=== PATIENT | female | born 1985 | race Caucasian/White ===

== ENCOUNTER → 2023-08-24 16:10 | Outpatient (CLI) | payer OTHER, SELFPAY ==
[2023-08-24 16:59] LABS: Influenza A - CEPHEID Flu A NEGATIVE (NEGATIVE); Influenza B - CEPHEID Flu B NEGATIVE (NEGATIVE); Respiratory Syncytial Virus Negative (Negative)
[2023-08-24 17:26] LABS: COVID-19 CEPHEID 4-PLEX PCR Negative (Negative)
== END ==
PROVIDERS: Visit Provider Physician Assistant Surgical
DX: R05.9 Cough, unspecified (principal)
CPT/HCPCS: 0241U

== ENCOUNTER 2023-08-26 12:28 | Emergency (ER) | payer OTHER, SELFPAY ==
[2023-08-26 12:37] VITALS: BP 193/127; PULSE 89; RESP 18; TEMP 36.1; O2SAT 85; BMI 29.9
--- NOTE | 2023-08-26 13:35 | DI.RAD.S_ITS ---
PROCEDURE: XR CHEST 2V INDICATIONS: Cough 3 weeks TECHNIQUE: 2 views of the chest were acquired. COMPARISON: None. FINDINGS: Surgical changes and devices: None. Lungs and pleura: Lungs are clear. No pleural effusions or pneumothorax. Mediastinum: Mediastinal contours are normal. Heart size is normal. Bones and chest wall: No suspicious bony abnormalities. Soft tissues appear unremarkable. IMPRESSION: No acute pulmonary process. Dictated by: Ilana Montenegro M.D. on 08/26/2023 at 14:24 Approved by: Ilana Montenegro M.D. on 08/26/2023 at 14:24
[2023-08-26 14:48] VITALS: BP 178/114; PULSE 73; RESP 18; O2SAT 98
[2023-08-26 15:55] VITALS: BP 175/115; PULSE 89; RESP 16; O2SAT 97
--- NOTE | 2023-09-02 19:13 | ED.URI ---
HPI - URI/Sore Throat <Apolinar Howell PA-C - Last Filed: 09/02/23 19:18> General Chief Complaint: Upper Respiratory Symptoms Stated Complaint: prolonged cough getting worse Time Seen by Provider: 08/26/23 13:40 Source: patient Mode of arrival: Ambulatory History of Present Illness HPI Narrative: 38-year-old female presents to the ED with 3 weeks of persistent cough. Patient had a cold 3 weeks ago, following which her other symptoms have resolved but the cough is lingering. Patient was seen at a urgent care clinic 3 days ago and was prescribed Tessalon Perles and Mucinex. Patient was also prescribed ipratropium nasal spray. Patient has been using those without much relief. Patient's blood pressure is also elevated in the ED today at 193 over 127. Patient denies a history of hypertension. Patient denies chest pain, shortness of breath. Related Data Previous Rx's Medication Instructions Recorded benzonatate 200 mg capsule 200 mg PO BID PRN cough #30 caps 08/24/23 ipratropium bromide 21 mcg (0.03 2 spray intranasal BID PRN allergy 08/24/23 %) nasal spray symptoms #30 mL codeine 10 mg-guaifenesin 100 mg/5 10 ml PO Q4-6H PRN cough #400 mL 08/26/23 mL oral liquid Allergies Allergy/AdvReac Type Severity Reaction Status Date / Time No Known Drug Allergies Allergy Unverified 08/24/23 16:09 Review of Systems <Apolinar Howell PA-C - Last Filed: 09/02/23 19:18> Constitutional Constitutional: Denies chills, Denies fatigue, Denies fever(s), Denies frequent falls, Denies lethargy and Denies weakness Eyes Eyes: Denies change in vision, Denies eye discharge, Denies irritation and Denies loss of vision ENT Ears, Nose, Mouth, and Throat: Denies change in voice, Denies dizziness, Denies neck pain, Denies sore throat and Denies throat swelling Cardiovascular Cardiovascular: Denies chest pain, Denies irregular heart rhythm, Denies lightheadedness, Denies palpitations, Denies dyspnea, Denies dyspnea on exertion and Denies orthopnea Respiratory Respiratory: Reports cough, Denies dyspnea, Denies dyspnea on exertion and Denies wheezing Gastrointestinal Gastrointestinal: Denies abdominal pain, Denies change in bowel habits, Denies diarrhea, Denies nausea and Denies vomiting Musculoskeletal Musculoskeletal: Denies neck pain and Denies numbness Integumentary/Breasts Skin/Breast: Denies pruritus, Denies erythema, Denies rash and Denies wounds Neurologic Neurologic: Denies behavioral changes, Denies confusion, Denies dizziness, Denies frequent falls, Denies loss of vision, Denies numbness and Denies weakness Psychiatric Psychiatric: Denies anxiety, Denies behavioral changes, Denies confusion, Denies depression, Denies homicidal ideation and Denies suicidal ideation Endocrine Endocrine: Denies fatigue, Denies flushing and Denies palpitations Hematologic/Lymphatic Hematologic/Lymphatic: Denies easy bruising Allergic/Immunologic Allergic/Immunologic: Denies urticaria, Denies throat swelling and Denies wheezing Patient History <Apolinar Howell PA-C - Last Filed: 09/02/23 19:18> Social History Smoking Status: Never smoker Smoking Status: Never smoker alcohol intake frequency: holidays/special occasions only Substance Use Type: does not use Exam <Apolinar Howell PA-C - Last Filed: 09/02/23 19:18> Narrative Exam Narrative: Const General:?cooperative, healthy appearing and comfortable [facility] Head:?normal to inspection Ears:?hearing grossly normal bilaterally Nose:?external nose normal Face and sinus:?normal facial exam and sinuses nontender Mouth:?oral mucosae normal Throat:?posterior oropharynx normal Eyes General:?appearance normal, both eyes and all related structures Neck Neck:?normal visual inspection and no lymphadenopathy noted Resp Effort & Inspection:?normal respiratory effort Auscultation:?clear to auscultation bilaterally Cardio Rate:?regular rate Rhythm:?regular rhythm Neuro General:?patient alert, patient awake and patient oriented x3 Initial Vital Signs Initial Vital Signs: Vital Signs Temperature 97 F L 08/26/23 12:37 Pulse Rate 89 08/26/23 12:37 Respiratory Rate 18 08/26/23 12:37 Blood Pressure 193/127 H 08/26/23 12:37 Pulse Oximetry 85 L 08/26/23 12:37 Oxygen Delivery Method Room Air 08/26/23 12:37 <Nirmala Garcia DO - Last Filed: 09/06/23 23:52> Initial Vital Signs Initial Vital Signs: Vital Signs Temperature 97 F L 08/26/23 12:37 Pulse Rate 89 08/26/23 12:37 Respiratory Rate 18 08/26/23 12:37 Blood Pressure 193/127 H 08/26/23 12:37 Pulse Oximetry 85 L 08/26/23 12:37 Oxygen Delivery Method Room Air 08/26/23 12:37 MDM - URI/Sore Throat <Apolinar Howell PA-C - Last Filed: 09/02/23 19:18> MDM Narrative Medical decision making narrative: 38-year-old female presents to the ED with 3 weeks of persistent cough. Chest x-ray was obtained which was normal. Patient's symptoms are most consistent with acute bronchitis following a cold. Prescribed codeine cough syrup. Recommend that patient stop the ipratropium nasal spray since it can be contributing to the elevated blood pressure. Counseled patient on elevated blood pressure readings, recommend keeping a journal of daily blood pressure readings, following up with her PCP as soon as possible for further evaluation. ED return precautions were discussed with patient. Patient verbalized understanding. Medical records reviewed: Yes Discharge Plan Departure Patient Disposition: Home Clinical Impression: Bronchitis Instructions: DI for Acute Bronchitis Activity Restrictions/Additional Instructions: You were evaluated in the ED today for a cough. Your x-ray was normal. Your symptoms are most consistent with acute bronchitis following a cold. It is quite common to develop bronchitis after a cold which causes a nagging cough that can last for 3-4 weeks. Your x-ray does not show any pneumonia. The treatment for bronchitis is to control your symptoms, good hydration. You are being prescribed a codeine cough syrup for the cough. You may continue Mucinex and Delsym. Please stop the ipratropium since it could be contributing to your elevated blood pressure today. Your blood pressure was elevated, please ensure to follow-up with your PCP as soon as possible for further evaluation. Please also obtain a blood pressure cuff to take daily measurements at home and journal them to take to your PCP. Return to the ED if you have worsening symptoms, fever, chills, persistent vomiting. Prescriptions: New codeine-guaifenesin 10-100 mg/5 mL liquid 10 ml PO Q4-6H PRN (Reason: cough) Qty: 400 0RF No Action benzonatate 200 mg capsule 200 mg PO BID PRN (Reason: cough) Qty: 30 0RF ipratropium bromide 21 mcg (0.03 %) spray,non-aerosol 2 spray intranasal BID PRN (Reason: allergy symptoms) Qty: 30 0RF Rx Instructions: administer into each nostril Referrals: Miscellaneous,Doctor, MD [Primary Care Provider] - Stand Alone Forms: Patient Portal/API ED Sign-out <Nirmala Garcia DO - Last Filed: 09/06/23 23:52> Cosign ED Attending Coslaurieature Attestation: I was immediately available in the department for consultation.
== END 2023-08-26 16:18 | disposition home or self-care (01) ==
PROVIDERS: Emergency Provider Student in an Organized Health Care Education/Training Program
DX: J20.9 Acute bronchitis, unspecified (principal)
CPT/HCPCS: 71046; 99283

== ENCOUNTER → 2024-01-02 11:41 | Outpatient (CLI) | payer OTHER, SELFPAY ==
[2024-01-02 12:24] LABS: Hematocrit 36.8 % (36-46); Hemoglobin 12.7 g/dL (12.0-16.0); Mean Corpuscular HGB Conc 34.5 % (30-36); Mean Corpuscular Hemoglobin 30.5 PG (26-34); Mean Corpuscular Volume 88.4 fL (80-100); Platelet Count 300 X10^3/uL (150-400); Red Blood Cell Count 4.16 X10^6/uL (4.0-5.2); White Blood Cell Count 6.9 X10^3/uL (4.5-11.0)
[2024-01-02 12:56] LABS: Alanine Aminotransferase 21 IU/L (<35); Albumin 4.1 g/dL (3.5-5.0); Albumin Globulin Ratio 1.6 (1.0-2.8); Alkaline Phosphatase 70 U/L (38-126); Aspartate Aminotransferase 21 IU/L (14-36); BUN Creatinine Ratio 14.5 (6-22); Bilirubin Total 0.5 mg/dL (0.2-1.3); Blood Urea Nitrogen 10 mg/dL (7-17); Calcium 8.7 mg/dL (8.4-10.2); Carbon Dioxide 23 mmol/L (22-32); Chloride 106 mmol/L (98-107); Cholesterol 147 mg/dL (140-199); Estimated Glomerular Filt Rate > 60 mL/min (>60); Globulin 2.5 g/dL (1.7-4.1); Glucose 103 mg/dL (70-100); HDL Cholesterol 50 mg/dL (40-60); HEMOLYSIS < 15 (0-50); LDL Cholesterol Calculated 70 mg/dL (<100); Potassium 3.9 mmol/L (3.4-5.1); Sodium 137 mmol/L (137-145); Total Protein 6.6 g/dL (6.3-8.2); Triglycerides 137 mg/dL (35-150)
[2024-01-02 13:23] LABS: Appearance Urine UA CLEAR; Bilirubin Urine UA 2+ (NEGATIVE); Color Urine UA YELLOW; Glucose Urine UA NEGATIVE (Negative); Ketones Urine UA TRACE (NEGATIVE); Leukocyte Esterase Urine UA NEGATIVE (NEGATIVE); Nitrite Urine UA NEGATIVE (Negative); Occult Blood Urine UA 2+ (Negative); Protein Urine UA 1+ (Negative)
[2024-01-02 13:24] LABS: TSH w/ Reflex to FT4 0.76 uIU/mL (0.47-4.68)
[2024-01-02 14:13] LABS: RBC Urine 10-30/HPF (0-5/HPF); Urine Volume 10mL (spun)
[2024-01-02 14:14] LABS: Bacteria Urine Moderate (10-30); Calcium Oxalate Crystals Urine Few; Squamous Epithelial Cell Urine 1-5 /HPF (0-5/HPF); WBC Urine 0-1/HPF (0-5/HPF)
[2024-01-02 14:15] LABS: Ictotest Urine Negative (Negative)
[2024-01-02 14:16] LABS: Culture Indicated Urine Cult Not Indicated
[2024-01-02 16:18] LABS: Protein (Total) Urine Random 12 mg/dL (0-12)
== END ==
PROVIDERS: PCP Family Medicine; Referring Provider Family Medicine; Visit Provider Family Medicine
DX: I10 Essential (primary) hypertension (principal)
CPT/HCPCS: 36415; 80053; 80061; 81001; 83036; 84156; 84443; 85027